=== PATIENT | male | born 1975 | race Hispanic/Latino ===

== ENCOUNTER 2022-11-21 12:35 | Emergency (ER) | payer SELFPAY ==
[2022-11-21] MEDS ORDERED: KETOROLAC 30 MG/ML INJ ONE (13:09)
[2022-11-21] MEDS ORDERED: CYCLOBENZAPRINE 10 MG TAB ONE (13:09)
[2022-11-21] MEDS ORDERED: dexAMETHasone 10 MG/ML VIAL ONE (13:09)
--- NOTE | 2022-11-21 13:52 | ER ---
Nurse's Notes [facility] Name: Leann Mcconnell Age: 46 yrs Sex: Male : 1975 Arrival Date: 11/21/2022 Time: 12:36 Bed 12 Private MD: Diagnosis: Sciatica, right side Presentation: 11/21 12:40 Chief complaint: Patient states: I have no idea whats going on but Monday I woke up [facility] with soreness in my lower back and it has just gotten so much worse and now its my back and right leg. Yesterday it was my left. Coronavirus screen: Vaccine status: Patient reports being unvaccinated. Client denies travel out of the [place] in the last 14 days. Ebola Screen: Patient negative for fever greater than or equal to 101.5 degrees Fahrenheit, and additional compatible Ebola Virus Disease symptoms Patient denies exposure to infectious person. Patient denies travel to an Ebola-affected area in the 21 days before illness onset. Initial Sepsis Screen: Does the patient meet any 2 criteria? No. Patient's initial sepsis screen is negative. Does the patient have a suspected source of infection? No. Patient's initial sepsis screen is negative. Risk Assessment: Do you want to hurt yourself or someone else? Patient reports no desire to harm self or others. 12:40 Method Of Arrival: Ambulatory [facility] 12:40 Acuity: ESPINOZA 3 [facility] 14:07 Onset of symptoms is unknown. ap3 Triage Assessment: 12:42 General: Appears uncomfortable, well groomed, well developed, Behavior is calm, jh5 cooperative, appropriate for age. Pain: Complains of pain in back and right leg. Historical: - Allergies: 12:42 No Known Allergies; 5 - PMHx: 12:42 None; 5 - PSHx: 12:42 None; 5 - Immunization history:: Adult Immunizations up to date. - Social history:: Smoking status: Patient reports the use of cigarette tobacco products, smokes one pack cigarettes per day. Screenin:07 [facility] ED Fall Risk Assessment (Adult) History of falling in the last 3 months, ap3 including since admission No falls in past 3 months (0 pts). Abuse screen: Denies threats or abuse. Nutritional screening: No deficits noted. Tuberculosis screening: No symptoms or risk factors identified. Vital Signs: 12:40 BP 179 / 98; Pulse 78; Resp 18; Temp 97.7; Pulse Ox 100% ; Weight 88.45 kg; Height 5 [facility] ft. 7 in. (170.18 cm); Pain 10/10; 12:40 Body Mass Index 30.54 (88.45 kg, 170.18 cm) [facility] ED Course: 12:36 Patient arrived in ED. am2 12:41 [facility] Barillas [facility] jh7 12:41 Star Worrell MD is Attending Physician. 7 12:42 Triage completed. 5 12:42 Arm band placed on right wrist. 5 14:00 Pennie Bowman, RN is Primary Nurse. ap3 14:07 Patient has correct armband on for positive identification. Bed in low position. Call ap3 light in reach. Side rails up X 1. Pulse ox on. NIBP on. Door closed. Noise minimized. 14:07 No provider procedures requiring assistance completed. Patient did not have IV access ap3 during this emergency room visit. Administered Medications: 13:10 Drug: Ketorolac 60 mg Route: IM; Site: left deltoid; 5 14:08 Follow up: Response: No adverse reaction; Pain is decreased ap3 13:10 Drug: Decadron (dexamethasone) 10 mg Route: IM; Site: right deltoid; 5 14:08 Follow up: Response: No adverse reaction ap3 13:10 Drug: Flexeril (cyclobenzaprine) 10 mg Route: PO; 5 14:08 Follow up: Response: No adverse reaction; Pain is decreased ap3 Medication: 14:07 VIS not applicable for this client. ap3 Outcome: 13:51 Discharge ordered by . 7 14:07 Condition: good ap3 14:07 Discharged to home ambulatory. ap3 14:07 Discharge instructions given to patient, Instructed on discharge instructions, follow up and referral plans. medication usage, Demonstrated understanding of instructions, follow-up care, medications, Prescriptions given X 2. 14:08 Patient left the ED. ap3 Signatures: Pennie Johnson am2 Pennie Bowman RN RN ap3 Meryl Gary RN RN [facility] Micki Barillas FNP [place] [id number]
--- NOTE | 2022-11-21 13:52 | EDPHYS ---
Physician Documentation [facility] Name: Leann Mcconnell Age: 46 yrs Sex: Male : 1975 Arrival Date: 11/21/2022 Time: 12:36 Bed 12 Private MD: ED Physician Star Worrell HPI: 11/21 12:45 This 46 yrs old Male presents to ER via Ambulatory with complaints of Leg Pain jh7 - right. 12:45 The patient presents with pain, that is acute. Patient reports right-sided lower back jh7 pain shooting down right leg. States that this started randomly today with no injury. Denies any medical history. Denies loss of bowel or bladder or any neurological symptoms.. Historical: - Allergies: 12:42 No Known Allergies; jh5 - PMHx: 12:42 None; jh5 - PSHx: 12:42 None; jh5 - Immunization history:: Adult Immunizations up to date. - Social history:: Smoking status: Patient reports the use of cigarette tobacco products, smokes one pack cigarettes per day. ROS: 12:45 Constitutional: Negative for fever, chills, and weight loss, Eyes: Negative for injury, jh7 pain, redness, and discharge, Neck: Negative for injury, pain, and swelling, Cardiovascular: Negative for chest pain, palpitations, and edema, Respiratory: Negative for shortness of breath, cough, wheezing, and pleuritic chest pain, Abdomen/GI: Negative for abdominal pain, nausea, vomiting, diarrhea, and constipation, MS/Extremity: Negative for injury and deformity, Skin: Negative for injury, rash, and discoloration, Neuro: Negative for headache, weakness, numbness, tingling, and seizure. 12:45 Back: Positive for pain with movement, radiated pain. 12:45 All other systems are negative. Exam: 12:45 Constitutional: This is a well developed, well nourished patient who is awake, alert, jh7 and in no acute distress. Head/Face: Normocephalic, atraumatic. Cardiovascular: Regular rate and rhythm with a normal S1 and S2. No gallops, murmurs, or rubs. Normal PMI, no JVD. No pulse deficits. Respiratory: Lungs have equal breath sounds bilaterally, clear to auscultation and percussion. No rales, rhonchi or wheezes noted. No increased work of breathing, no retractions or nasal flaring. Abdomen/GI: Soft, non-tender, with normal bowel sounds. No distension or tympany. No guarding or rebound. No evidence of tenderness throughout. Skin: Warm, dry with normal turgor. Normal color with no rashes, no lesions, and no evidence of cellulitis. Neuro: Awake and alert, GCS 15, oriented to person, place, time, and situation. Motor strength 5/5 in all extremities. Sensory grossly intact. Normal gait. 12:45 Back: pain, that is mild, of the right low back, ROM is normal, muscle spasm, is appreciated in the right low back. Vital Signs: 12:40 BP 179 / 98; Pulse 78; Resp 18; Temp 97.7; Pulse Ox 100% ; Weight 88.45 kg; Height 5 [facility] ft. 7 in. (170.18 cm); Pain 10/10; 12:40 Body Mass Index 30.54 (88.45 kg, 170.18 cm) [facility] MDM: 12:41 Patient medically screened. [facility] 13:40 Differential diagnosis: Sciatica, lumbar strain. Data reviewed: vital signs, nurses [facility] notes. I considered the following discharge prescriptions or medication management in the emergency department Medications were administered in the Emergency Department. See MAR. Test considered but Not performed: X-ray: No injury present. Counseling: I had a detailed discussion with the patient and/or guardian regarding: the historical points, exam findings, and any diagnostic results supporting the discharge/admit diagnosis, to return to the emergency department if symptoms worsen or persist or if there are any questions or concerns that arise at home. Response to treatment: the patient's symptoms have markedly improved after treatment. Administered Medications: 13:10 Drug: Ketorolac 60 mg Route: IM; Site: left deltoid; 5 14:08 Follow up: Response: No adverse reaction; Pain is decreased ap3 13:10 Drug: Decadron (dexamethasone) 10 mg Route: IM; Site: right deltoid; 5 14:08 Follow up: Response: No adverse reaction ap3 13:10 Drug: Flexeril (cyclobenzaprine) 10 mg Route: PO; 5 14:08 Follow up: Response: No adverse reaction; Pain is decreased ap3 Disposition: 11/22 06:59 Co-signature as Attending Physician, Star Worrell MD I reviewed the patient's care rn provided by the Advanced Practice Provider and agree with the diagnosis and treatment plan. Disposition Summary: 11/21/22 13:51 Discharge Ordered Location: Home [facility] Problem: new jh7 Symptoms: have improved jh Condition: Stable jh7 Diagnosis - Sciatica, right side jh7 Followup: [facility] - With: Private Physician - When: 2 - 3 days - Reason: Recheck today's complaints Discharge Instructions: - Discharge Summary Sheet [facility] - Sciatica [facility] Forms: - Medication Reconciliation Form [facility] - Thank You Letter [facility] Prescriptions: - Zanaflex 4 mg Oral Tablet - take 1 tablet by ORAL route every 8 hours As needed; 20 tablet; Refills: 0, jh7 Product Selection Permitted - Medrol (Cole) 4 mg Oral Tablets, Dose Pack - take 1 tablet by ORAL route as directed - follow package instructions; 1 jh7 packet; Refills: 0, Product Selection Permitted Signatures: Star Worrell MD MD rn Rees, Jessica, RN RN 5 Micki Barillas [facility]7 Pennie Bowman RN ap3
[2022-11-21 14:19] VITALS: BP 179/98; TEMP 97.7; O2SAT 100
== END 2022-11-21 14:08 | disposition home or self-care (01) ==
LOC: ER 12:35
DX: M54.31 Sciatica, right side (principal); F17.210 Nicotine dependence, cigarettes, uncomplicated
CPT/HCPCS: J1100